=== PATIENT | male | born 1960 | race Caucasian/White ===

== ENCOUNTER → 2018-03-25 | Outpatient (CLI) | payer OTHER | LOC: CIMAGING 16:36 | PROVIDERS: ATTEND Family Medicine | DX: M19.012 Primary osteoarthritis, left shoulder (principal); M71.312 Other bursal cyst, left shoulder | CPT/HCPCS: 73030-PO ==

== ENCOUNTER → 2018-04-08 | Outpatient (CLI) | payer OTHER | LOC: CIMAGING 16:13 | PROVIDERS: ATTEND Family Medicine | DX: M18.11 Unilateral primary osteoarthritis of first carpometacarpal joint, right hand (principal); M19.041 Primary osteoarthritis, right hand | CPT/HCPCS: 73130-PO ==